=== PATIENT | female | born 1960 | race African-American/Black ===

== ENCOUNTER 2019-06-15 05:30 | Inpatient (IN) ==
[2019-06-02 13:40] LABS: Apearance,Urine CLEAR (Clear); Bilirubin,Urine Negative (Negative); Blood, Urine Negative (Negative); Glucose,Urine (UA) Negative (Negative); Hyaline Casts,Urine 9 /LPF (0-3); Ketones,Urine Negative (Negative); Mucus,Urine Occasional /LPF (Occasional); Nitrite,Urine Negative (Negative); Protein,Urine Negative; RBC,Urine 2 /HPF (0-4); Squamous Epithelial Cell,Urine Occasional /HPF (0-10); Urine Color Yellow (Yellow); Urine Specific Gravity 1.025 (1.001-1.035); WBC,Urine 2 /HPF (0-6)
[2019-06-02 13:42] LABS: Basophils % 0.4 % (0.0-0.8); Eosinophils # 0.1 10*3/uL (0.0-0.87); Eosinophils % 0.8 % (0.00-10.9); Hematocrit 36.2 VOL% (35.7-47.0); Hemoglobin 11.3 GM/DL (12.0-16.0); Immature Granulocytes % 0.3 %; Immature Granulocytes Absolute 0.03 #; Lymphocytes # 2.4 10*3/uL (1.4-4.0); Mean Corpuscular HGB Conc 31.2 GM/DL (32-36); Mean Platelet Volume 9.8 FL (9.6-12.0); Monocytes % 7.1 % (1.7-12.7); Neutrophils % 65.4 % (38.7-73.9); Platelet Count 245 T/CUMM (130-400); Red Blood Count 4.16 MC/CUMM (3.8-5.5); Red Cell Distribution Width 14.5 % (9.3-17.3)
[2019-06-02 13:53] LABS: INR 0.9; PT Patient Result 10.1 SECS (9.6-12.2); Partial Thromboplastin Time 23.8 SECS (20.8-36.0)
[2019-06-02 14:08] LABS: Alanine Aminotransferase 13 U/L (13-56); Albumin 3.7 G/DL (3.4-5.0); Alkaline Phosphatase 121 U/L (45-117); Aspartate Amino Transferase 13 U/L (0-37); Bilirubin,Total < 0.39 MG/DL (0.2-1.0); Blood Urea Nitrogen 13 MG/DL (7-18); Estimated Glom Filtration Rate 69 ML/MIN; Glucose 173 MG/DL (74-106); Osmolality,Calculated 295.4 MOS/KG (273-304); Total Protein 8.1 G/DL (6.4-8.3)
[2019-06-15] MEDS ORDERED: DIAZEPAM 5 MG TABLET ONE (05:46)
[2019-06-15] MEDS ORDERED: ceFAZolin 1,000 MG VIAL ONE (05:46)
[2019-06-15] MEDS ORDERED: VANCOMYCIN 1,000 MG VIAL ONE (05:46)
[2019-06-15] MEDS ORDERED: ACETAMINOPHEN 500 MG TABLET ONE (05:47)
[2019-06-15] MEDS ORDERED: GABAPENTIN 400 MG CAPSULE ONE (05:47)
[2019-06-15] MEDS ORDERED: FAMOTIDINE 20 MG TABLET ONE (05:47)
[2019-06-15] MEDS ORDERED: GABAPENTIN 400 MG CAPSULE PO ONE (06:00)
[2019-06-15] MEDS ORDERED: DIAZEPAM 5 MG TABLET PO ONE (06:00)
[2019-06-15] MEDS ORDERED: FAMOTIDINE 20 MG TABLET PO ONE (06:00)
[2019-06-15] MEDS ORDERED: ACETAMINOPHEN 500 MG TABLET PO ONE (06:00)
[2019-06-15] MEDS: LACTATED RINGERS 1,000 ML IV SCH (06:29)
[2019-06-15] MEDS ORDERED: ceFAZolin 1,000 MG in SYRINGE 1 EACH IV ONE (06:30)
[2019-06-15] MEDS ORDERED: VANCOMYCIN INJ 1,000 MG in SODIUM CHLORIDE 0.9% 250 ML IV ONE (06:30)
[2019-06-15] MEDS ORDERED: TRANEXAMIC ACID 1,000 MG/10 ML VIAL ONE (06:38)
[2019-06-15] MEDS ORDERED: BUPIVACAINE SPINAL 0.75% 2 ML AMP SPINAL ONE (06:56)
[2019-06-15] MEDS ORDERED: PROPOFOL 500 MG/50 ML BOTTLE IV ONE (06:56)
[2019-06-15] MEDS ORDERED: ROPIVACAINE 0.5% 30 ML VIAL ONE (07:15)
[2019-06-15] MEDS ORDERED: DEXAMETHASONE 4 MG/1 ML VIAL ONE (07:15)
[2019-06-15] MEDS ORDERED: LIDOCAINE 2% 5 ML VIAL ONE (07:17)
[2019-06-15] MEDS ORDERED: TEMAZEPAM 7.5 MG CAPSULE PO PRN (10:11)
[2019-06-15] MEDS ORDERED: diphenhydrAMINE CAP 25 MG CAPSULE PO PRN (10:11)
[2019-06-15] MEDS ORDERED: PROMETHAZINE 25 MG/1 ML VIAL IM PRN (10:11)
[2019-06-15] MEDS ORDERED: MAGNESIUM HYDROXIDE SUSP 30 ML UDCUP PO PRN (10:11)
[2019-06-15] MEDS ORDERED: MORPHINE 4 MG/1 ML VIAL IV PRN ×2 (10:11→11:49)
[2019-06-15 10:23] LABS: Apearance,Urine CLEAR (Clear); Bacteria,Urine Occasional /HPF (Few); Bilirubin,Urine Negative (Negative); Blood, Urine Small mg/dL (Negative); Glucose,Urine (UA) Negative (Negative); Ketones,Urine Negative (Negative); Nitrite,Urine Negative (Negative); Protein,Urine Negative; RBC,Urine <1 /HPF (0-4); Urine Color Colorless (Yellow); Urine Specific Gravity 1.003 (1.001-1.035); Urine Urobilinogen < 2.0 EU/DL (0.2-1.0); WBC,Urine <1 /HPF (0-6)
[2019-06-15] MEDS ORDERED: ePHEDrine 50 MG/ML AMP ONE (10:24)
[2019-06-15] MEDS ORDERED: MIDAZOLAM 2 MG/2 ML VIAL ONE (10:24)
[2019-06-15] MEDS ORDERED: fentaNYL 100 MCG/2 ML VIAL ONE (10:24)
[2019-06-15] MEDS ORDERED: LACTATED RINGERS 1,000 ML IV ONE (10:25)
[2019-06-15] MEDS ORDERED: PHENYLEPHRINE 1 MG/10 ML SYRINGE IV ONE (10:25)
[2019-06-15] MEDS: ONDANSETRON 4 MG/2 ML VIAL IV PRN (15:43)
[2019-06-15] MEDS: ceFAZolin 1,000 MG in SYRINGE 1 EACH IV SCH (17:35)
[2019-06-15] MEDS: FONDAPARINUX 2.5 MG/0.5 ML SYRINGE SUBCUT SCH (17:41)
[2019-06-15] MEDS: SIMVASTATIN 40 MG TABLET PO SCH (20:22)
[2019-06-15] MEDS: QUEtiapine 25 MG TABLET PO SCH (20:22)
[2019-06-15] MEDS: DOCUSATE SODIUM 100 MG CAPSULE PO SCH (20:23)
[2019-06-15] MEDS: tiZANidine 4 MG TABLET PO SCH (20:23)
[2019-06-15] MEDS: PINDOLOL 5 MG TABLET PO SCH (20:23)
[2019-06-16] MEDS: ceFAZolin 1,000 MG in SYRINGE 1 EACH IV SCH (02:41)
[2019-06-16 05:20] LABS: Basophils % 0.1 % (0.0-0.8); Hematocrit 31.5 VOL% (35.7-47.0); Hemoglobin 9.9 GM/DL (12.0-16.0); Immature Granulocytes % 0.7 %; Immature Granulocytes Absolute 0.08 #; Lymphocytes # 1.2 10*3/uL (1.4-4.0); Lymphocytes % 10.4 % (21.3-54.2); Mean Corpuscular HGB Conc 31.4 GM/DL (32-36); Mean Corpuscular Volume 85.4 FL (87-102); Mean Platelet Volume 9.9 FL (9.6-12.0); Monocytes % 6.8 % (1.7-12.7); Platelet Count 222 T/CUMM (130-400); Red Blood Count 3.69 MC/CUMM (3.8-5.5); Red Cell Distribution Width 13.6 % (9.3-17.3); White Blood Count 11.2 T/CUMM (4-12)
[2019-06-16 05:34] LABS: Calcium 8.8 MG/DL (8.5-10.1); Osmolality,Calculated 281.4 MOS/KG (273-304)
[2019-06-16] MEDS: LEVOTHYROXINE 88 MCG TABLET PO SCH (06:34)
[2019-06-16] MEDS: LACTATED RINGERS 1,000 ML IV SCH (07:23)
[2019-06-16] MEDS: PINDOLOL 5 MG TABLET PO SCH ×2 (08:49→20:34)
[2019-06-16] MEDS: amLODIPine 10 MG TABLET PO SCH (08:49)
[2019-06-16] MEDS: DOCUSATE SODIUM 100 MG CAPSULE PO SCH ×2 (08:50→20:35)
[2019-06-16] MEDS: PANTOPRAZOLE 40 MG TABLET PO SCH (08:50)
[2019-06-16] MEDS: ONDANSETRON 4 MG/2 ML VIAL IV PRN (17:53)
[2019-06-16] MEDS: FONDAPARINUX 2.5 MG/0.5 ML SYRINGE SUBCUT SCH (17:53)
[2019-06-16] MEDS: SIMVASTATIN 40 MG TABLET PO SCH (20:35)
[2019-06-16] MEDS: tiZANidine 4 MG TABLET PO SCH (20:35)
[2019-06-16] MEDS: QUEtiapine 25 MG TABLET PO SCH (20:35)
[2019-06-17 05:06] LABS: Basophils % 0.2 % (0.0-0.8); Eosinophils % 0.2 % (0.00-10.9); Hematocrit 28.7 VOL% (35.7-47.0); Immature Granulocytes % 0.6 %; Immature Granulocytes Absolute 0.06 #; Lymphocytes # 1.6 10*3/uL (1.4-4.0); Lymphocytes % 15.3 % (21.3-54.2); Mean Corpuscular HGB Conc 31.4 GM/DL (32-36); Mean Corpuscular Volume 85.4 FL (87-102); Mean Platelet Volume 10.3 FL (9.6-12.0); Monocytes % 9.4 % (1.7-12.7); Neutrophils % 74.3 % (38.7-73.9); Platelet Count 195 T/CUMM (130-400); Red Blood Count 3.36 MC/CUMM (3.8-5.5); White Blood Count 10.6 T/CUMM (4-12)
[2019-06-17 05:33] LABS: Calcium 8.4 MG/DL (8.5-10.1); Osmolality,Calculated 281.4 MOS/KG (273-304)
[2019-06-17] MEDS: LEVOTHYROXINE 88 MCG TABLET PO SCH (06:15)
[2019-06-17] MEDS: PANTOPRAZOLE 40 MG TABLET PO SCH (09:48)
[2019-06-17] MEDS: PINDOLOL 5 MG TABLET PO SCH (09:49)
[2019-06-17] MEDS: DOCUSATE SODIUM 100 MG CAPSULE PO SCH (09:51)
[2019-06-17] MEDS: amLODIPine 10 MG TABLET PO SCH (09:51)
[2019-06-17 11:29] VITALS: BP 116/65
[2019-06-17 13:51] LABS: Apearance,Urine CLEAR (Clear); Bacteria,Urine Occasional /HPF (Few); Bilirubin,Urine Negative (Negative); Blood, Urine Small mg/dL (Negative); Glucose,Urine (UA) Negative (Negative); Hyaline Casts,Urine 3 /LPF (0-3); Ketones,Urine Negative (Negative); Mucus,Urine Occasional /LPF (Occasional); Nitrite,Urine Negative (Negative); Protein,Urine Negative; RBC,Urine 6 /HPF (0-4); Squamous Epithelial Cell,Urine Occasional /HPF (0-10); Urine Color Yellow (Yellow); Urine Specific Gravity 1.014 (1.001-1.035); WBC,Urine 3 /HPF (0-6)
== END 2019-06-17 15:50 | disposition home health service (06) | DRG 470 ==
LOC: N.SDSINP 05:30 → N.OR 05:30 → EDSTATUS 07:30 → N.SDSINP 10:12 → N.3E 11:21
PROVIDERS: ADMIT Orthopaedic Surgery; ATTEND Orthopaedic Surgery